=== PATIENT | female | born 1975 ===

== ENCOUNTER 2019-09-22 14:35 | Outpatient (CLI) | payer OTHER ==
--- NOTE | 2019-09-28 09:33 | Mammography Report ---
Reason: SCREENING MAMMO Procedure Date: 09/22/2019 Accession Number: [id number] / [id number] Procedure: [facility] - Screening Mammo w/T[facility] CPT Code: Final Report FULL RESULT: EXAM: Screening Mammo w/ Trevor DATE: 09/22/2019 3:04 PM CLINICAL HISTORY: The patient is an asymptomatic 44-year-old female presenting for screening mammography. Family history breast cancer - mother and grandmother (ages unknown). TECHNIQUE: (B) - Bilateral CC and MLO views were obtained. COMPARISON: 06/10/2017 and 01/16/2011 PARENCHYMAL PATTERN: (D) - The breasts demonstrate heterogeneously dense fibroglandular parenchyma bilaterally.This limits mammographic sensitivity. FINDINGS: RIGHT BREAST: There are no suspicious masses, calcifications, or areas of distortion. Stable exam. LEFT BREAST: There are new grouped calcifications in the deep central slightly medial position. Recommend targeted magnification views for further evaluation. The remainder the parenchymal pattern is stable. IMPRESSION: RIGHT BREAST: Negative examination. BI-RADS category 1. LEFT BREAST: Incomplete examination. BI-RADS Category 0 RECOMMENDATION: Targeted diagnostic magnification views of the left breast. BI-RADS CATEGORY: (0) - Incomplete Examination - need additional evaluation. STANDARD QUALIFYING STATEMENTS: 1. This examination was not reviewed with the aid of Computer-Aided Detection (CAD). 2. A negative or benign imaging report should not preclude biopsy if clinically suspicious findings are present. 3. Dense breasts may obscure an underlying neoplasm. 4. This examination was reviewed with the aid of 3D breast imaging (tomosynthesis).
== END 2019-09-22 14:36 | disposition home or self-care (01) ==
LOC: DI 14:35
PROVIDERS: ATTEND General Practice
DX: Z12.31 Encounter for screening mammogram for malignant neoplasm of breast (principal); R92.1 Mammographic calcification found on diagnostic imaging of breast; Z80.3 Family history of malignant neoplasm of breast
CPT/HCPCS: 77063; 77067

== ENCOUNTER 2020-05-28 14:48 | Outpatient (CLI) | payer OTHER ==
--- NOTE | 2020-05-28 16:56 | MRI Report ---
PROCEDURE: Shoulder RT W/O INDICATIONS: RT SHOULDER PAIN TECHNIQUE: Noncontrast oblique coronal T2 fast spin echo with fat saturation, oblique sagittal T1 spin echo and T2 fast spin echo with fat saturation, axial T1 spin echo and T2 fast spin echo with fat saturation t hrough the shoulder. COMPARISON: None. FINDINGS: Image quality: Excellent. Rotator cuff: There is tendinosis and low-grade articular and bursal surface partial-thickness tear i nvolving distal supraspinatus at its insertion on humeral head. Distal infraspinatus is intact. Tendi nosis and low to moderate grade partial-thickness tear involving superior to mid fibers of distal sub scapularis is seen. No full-thickness rotator cuff tendon rupture. No rotator cuff muscle atrophy on sagittal images. Bones and bursae: No bone marrow contusions or fractures. Mild acromioclavicular joint osteoarthriti c changes are seen. There is mild edema involving distal clavicle, no definite discrete fracture line is noted. Finding may represent mild bony contusion. No other area of abnormal marrow signal. Small amount of glenohumeral joint fluid is seen. Small amount of subacromial subdeltoid bursal fluid is al so noted. Capsule and soft tissues: In the absence of intra-articular contrast, there is suggestion of superio r anterior labral tear at 12 to 2:00 position. The glenohumeral ligaments appear intact. The long he ad of the biceps tendon demonstrates normal location and morphology. The rotator interval appears no rmal, without fibrosis. The coracohumeral ligament is normal in thickness. IMPRESSION: 1. Marrow edema involving distal clavicle adjacent to acromioclavicular joint with no discrete fractu re line seen. Finding likely represent contusion in this area. Moderate acromioclavicular joint osteo arthritis. Small amount of joint fluid and subacromial subdeltoid bursal fluid. 2. Tendinosis and low-grade articular and bursal surface partial-thickness tear involving distal supr aspinatus. Tendinosis and low to moderate grade partial-thickness tear involving superior to mid fibe rs of distal subscapularis. No full-thickness rotator cuff tendon rupture. 3. Suggestion of superior anterior labral tear at 12 to 2:00 position. Reviewed by: Flash Castillo MD on 05/28/2020 4:54 PM PDT Approved by: Flash Castillo MD on 05/28/2020 4:54 PM PDT Station ID: [id number]
== END 2020-05-28 14:49 | disposition home or self-care (01) ==
LOC: DI 14:48
PROVIDERS: ATTEND Family Medicine
DX: M19.011 Primary osteoarthritis, right shoulder (principal); M75.101 Unspecified rotator cuff tear or rupture of right shoulder, not specified as traumatic; S43.491A Other sprain of right shoulder joint, initial encounter